=== PATIENT | male | born 1950 | race Caucasian/White ===

== ENCOUNTER → 2017-11-12 | Outpatient (CLI) | payer OTHER ==
[~2017-11-12] MED LIST: AMOX500C3 PO; CIPR0.3S OP
[2017-11-12 09:22] LABS: BASO % 0.2 %; BASO ABS # 0.01 K/uL (0-0.2); EOS % 1.6 %; EOS ABS # 0.08 K/uL (0-0.5); HEMATOCRIT 43.6 % (42-52); HEMOGLOBIN 15.8 g/dL (14.0-18.0); LYMPH % 34.1 %; LYMPH ABS # 1.72 K/uL (1.2-3.4); MEAN CELL VOLUME 87.9 fL (80-100); MEAN CORPUSCULAR HEMOGLOBIN 31.9 pg (25-34); MEAN CORPUSCULAR HGB CONC 36.2 g/dl (32-36); MEAN PLATELET VOLUME 9.3 fL (7.4-10.4); MONO % 9.7 %; MONO ABS # 0.49 K/uL (0.11-0.59); NEUT % 54.4 %; NEUT ABS # 2.74 K/uL (1.4-6.5); PLATELET COUNT 204 K/uL (130-400); RED CELL DISTRIBUTION WIDTH CV 13.7 % (11.5-14.5); RED CELL DISTRIBUTION WIDTH SD 43.9 fL (36.4-46.3); WHITE BLOOD COUNT 5.04 K/uL (4.8-10.8)
[2017-11-12 09:31] LABS: ALBUMIN 3.9 gm/dl (3.4-5.0); ALT/SGPT 27 U/L (12-78); BLOOD UREA NITROGEN 12 mg/dl (7-18); CALCIUM 8.8 mg/dl (8.5-10.1); CARBON DIOXIDE 25 mmol/L (21-32); CHOLESTEROL 171 mg/dl (0-200); CREATININE 0.86 mg/dl (0.60-1.40); GLUCOSE 109 mg/dl (70-99); POTASSIUM 4.1 mmol/L (3.5-5.1); SODIUM 139 mmol/L (136-145)
[2017-11-12 09:36] LABS: ALKALINE PHOSPHATASE 69 U/L (45-117); AST/SGOT 18 U/L (15-37); LDL CHOLESTEROL CALCULATED 106 mg/dl; TOTAL PROTEIN 6.9 gm/dl (6.4-8.2)
[2017-11-12 09:38] LABS: HEMOGLOBIN A1C 5.5 % (4.5-5.6)
== END | disposition home or self-care (01) ==
LOC: C.LAB 07:35
PROVIDERS: ATTEND Family Medicine
DX: Z01.818 Encounter for other preprocedural examination (principal); Z13.9 Encounter for screening, unspecified; E66.9 Obesity, unspecified; N52.9 Male erectile dysfunction, unspecified; R73.9 Hyperglycemia, unspecified

== ENCOUNTER 2017-11-21 06:04 | Inpatient (IN) | payer OTHER ==
[2017-11-12 08:09] VITALS: BMI 32.0
--- NOTE | 2017-11-12 08:40 | PAT Medication Instructions ---
Service Date Nov 12, 2017. Current Home Medication List Amoxicillin (Amoxil), Unknown Dose PO TID Ciprofloxacin Hcl (Ophth) (Ciloxan Oph), Unknown Dose OP QID Medication Instructions For Your Scheduled Surgery -Continue as directed until completed: Amoxicillin (Amoxil), Unknown Dose PO TID Ciprofloxacin Hcl (Ophth) (Ciloxan Oph), Unknown Dose OP QID If you have any questions please call us at [phone] or [phone] or [phone]
--- NOTE | 2017-11-12 09:29 | DIAGNOSTIC IMAGING REPORT ---
CHEST 2 VIEWS ROUTINE HISTORY: Preop. COMPARISON: None. FINDINGS: The lungs are clear. Cardiac silhouette is normal in size. No pleural effusions. No pneumothorax. Small nodular densities at the lung bases are consistent with nipple shadows. IMPRESSION: No acute process. Electronically signed by: Martin Willard M.D. 11/12/2017 9:27 AM Dictated Date/Time: 11/12/2017 9:26 AM
[2017-11-12 09:30] LABS: PTT PATIENT 26.7 SECONDS (21.0-31.0)
--- NOTE | 2017-11-20 12:39 | History and Physical ---
History & Physical Date Nov 20, 2017. Chief Complaint Patient presents a 66-year-old white male with severe end-stage DJD left knee and presents for left total knee arthroplasties failed attempts at conservative management including physical therapy anti-inflammatories relative rest activity modification cortical steroid injections and Visco supplementation presents with x-ray findings of subchondral sclerosis marginal osteophytes cystic changes for total knee arthroplasty History of Present Illness The patient is a 66 year old male with complaints of ongoing left knee pain no response to conservative management failing all conservative measures presents for left total knee arthroplasty Past Medical/Surgical History Patient has history of sleep apnea denies history of hypertension lung or GI disease Additional History Hepatic Disease: No Endocrine Disorder: No Kidney Disease: No Hypertension: No Heart Disease: No Bleeding Tendencies: No Infectious Diseases: No Allergies Coded Allergies: Codeine (Verified Adverse Reaction, Unknown, UPSET STOMACH, 11/12/17) Home Medications Scheduled Amoxicillin (Amoxil), Unknown Dose PO TID Ciprofloxacin Hcl (Ophth) (Ciloxan Oph), Unknown Dose OP QID Physical Examination Skin: warm/dry, no rash Eyes: normal inspection, EOMI, sclerae normal ENT: normal ENT inspection, pharynx normal Head: normocephalic, atraumatic Neck: supple, no adenopathy, trachea midline Respiratory/Chest: lungs clear, normal breath sounds, no respiratory distress Cardiovascular: regular rate, rhythm, no edema, no murmur Abdomen / GI: normal bowel sounds, non tender Back: normal inspection Extremities: normal inspection, normal range of motion, + pertinent finding ( Patient has a varus alignment with a femoral thrust femur subluxed medialward on tibia crepitation on clinical examination with a mild to moderate effusion medial lateral joint line pain and tenderness to exam consistent of end-stage varus alignment DJD) Neurologic/Psych: no motor/sensory deficits, alert, normal reflexes, oriented x 3 Diagnosis Severe end-stage tricompartmental degenerative joint disease left knee Plan of Treatment Left total knee arthroplasty postoperative pain meds DVT prophylaxis is necessary
[2017-11-21] VITALS (11 sets, daily range): BP systolic 143–177; BP diastolic 55–104; PULSE 75–91; TEMP 36.4–36.8; O2SAT 92–96; Ht 182.9 cm; Wt 109.3 kg
[~2017-11-21] VITALS: Ht 182.9 cm; Wt 109.3 kg
[~2017-11-21 06:04] MED LIST changes: +ACETAMINOPHEN 500 MG TAB PO SCH; +CEFAZOLIN 2000MG IV PUSH 15 ML IV SCH; +CeleBREX 200 MG CAP PO SCH; +DEXAMETHASONE 4 MG TAB PO SCH; +FAMOTIDINE 20 MG TAB PO SCH; +GABAPENTIN 300 MG CAP PO SCH; +LACTATED RINGER'S 1000ML 1,000 ML IV SCH; +METOCLOPRAMIDE HCL 10 MG TAB PO SCH; +ROPIVACAINE 5MG/ML 30 ML 150 MG, BUPIVACAINE 0.5% MPF INJ 30 ML, EpINEphrine HCL INJ 0.... INFIL SCH; +TRANEXAMIC ACID INJ 1,000 MG x 1 Bag Intra-Op IV SCH; +TRANEXAMIC ACID INJ 1,000 MG x 1 Bag Preop IV SCH
[2017-11-21] MEDS ORDERED: BUPIVACAINE 0.5 % 5 MG/1 ML PF 10ML VIAL ONE (06:32)
[2017-11-21] MEDS ORDERED: BUPIVACAINE 0.25% 30 ML VIAL ONE (06:32)
[2017-11-21] MEDS ORDERED: ATROPINE SULFATE 0.1 MG/ML 5ML SYR IV PRN (06:45)
[2017-11-21] MEDS ORDERED: EpHEDrine SULFATE INJ 50 MG/ML AMP IV PRN (06:45)
[2017-11-21] MEDS ORDERED: ONDANSETRON INJ 2 MG/ML 2 ML VIAL IV PRN ×2 (06:45→10:00)
[2017-11-21] MEDS ORDERED: POVIDONE-IODINE OP SOLN 30 ML BTL ONE (06:58)
[2017-11-21] MEDS ORDERED: BACITRACIN 50000 UNIT VIAL ONE (06:58)
[2017-11-21] MEDS ORDERED: ORTHO JOINT ANESTHETIC ONE (06:58)
--- NOTE | 2017-11-21 07:00 | History & Physical Bridge Note ---
H&P Re-Evaluation Bridge Note: I have examined the patient, reviewed the History & Physical and in the interval since the performance of the History & Physical I have noted the following changes of clinical significance: No changes noted
[2017-11-21] MEDS ORDERED: PROPOFOL IV EMULSION 10 MG/ML 20 ML VIAL IV ONE (07:06)
[2017-11-21] MEDS ORDERED: FENTANYL CITRATE INJ 50 MCG/1 ML 2 ML VIAL ONE ×2 (07:06→08:26)
[2017-11-21] MEDS ORDERED: MIDAZOLAM HCL 1 MG/ML 2ML VIAL ONE (07:06)
[2017-11-21] MEDS ORDERED: LIDOCAINE HCL 2% 2 ML VIAL (20MG/ML) ONE (07:06)
[2017-11-21] MEDS ORDERED: DEXAMETHASONE SOD INJ 4 MG/ML VIAL ONE (07:06)
[2017-11-21] MEDS ORDERED: ONDANSETRON INJ 2 MG/ML 2 ML VIAL ONE (07:06)
[2017-11-21] MEDS ORDERED: HYDROmorphone INJ 2 MG/ML SYR/VIAL ONE (08:31)
--- NOTE | 2017-11-21 09:08 | [facility] Post Operative Brief Note ---
Immediate Operative Summary Operative Date Nov 21, 2017. Pre-Operative Diagnosis Severe End-stage Tricompartmental degenerative joint disease of the left knee Post-Operative Diagnosis Severe End-stage Tricompartmental degenerative joint disease of the left knee Procedure(s) Performed Left Total Knee Arthroplasty utilizing De Leon [employer] journey to non-block total knee arthroplasty size 7 femur 7 tibia 11 polyethylene [address] Ben Shaffer Valet Parking Attendant Surgeon(s) Sohail Abdullahi PA-c Estimated Blood Loss 5 cc Findings Consistent with Post-Op Diagnosis Specimens A: Bone and Tissue left knee Anesthesia Type MAC Spinal Regional Complication(s) none Disposition Disposition: Recovery Room / PACU
--- NOTE | 2017-11-21 09:10 | [facility] Operative Report ---
Operative Report Operative Date Nov 21, 2017. Pre-Operative Diagnosis Severe End-stage Tricompartmental degenerative joint disease of the left knee Post-Operative Diagnosis Severe End-stage Tricompartmental degenerative joint disease of the left knee Procedure(s) Performed Left Total Knee Arthroplasty utilizing [employer] journey to non-block total knee arthroplasty size 7 femur 7 tibia 11 polyethylene [address] Ben Shaffer Assistant Corporate Secretary Surgeon(s) Sohail Abdullahi PA-c Estimated Blood Loss 5 cc Findings Patient presents with severe end-stage tricompartmental degenerative joint disease with varus alignment bone the bone changes eburnated bone subchondral cysts marginal osteophytes sclerosis is failed attempts at conservative management and physical therapy anti-inflammatories relative rest activity modification corticosteroid injections viscous supplementation his clinical exam reveals there to be evidence of a mild to moderate effusion sooner ligamentous laxity joint line pain and tenderness consistent with osteoarthritis Specimens A: Bone and Tissue left knee Anesthesia Type MAC Spinal Regional Complication(s) none Disposition Recovery Room / PACU Indications Patient presents with severe end-stage tricompartmental degenerative joint disease involving his left knee is been no response to conservative therapy including physical therapy anti-inflammatories relative rest activity modification he has x-ray findings consistent that of osteoarthritis subchondral sclerosis marginal osteophyte sclerosis cystic formation femoral varus alignment with the femoral shaft is ligamentous pseudolaxity on clinical exam moderate effusion joint line pain and tenderness Description of Procedure After proper prepping and draping of the left lower extremity anterior midline incision was made over the region of the extensor extensor mechanism after meticulous hemostasis was obtained and maintained in subcutaneous tissues a medial parapatellar incision was made The patella was subluxed lateralward the medial lateral gutter were cleaned from any hypertrophic synovitis and scar tissue of the distal femoral block was placed and the distal femoral osteotomy cut was made subsequently the chamfers anterior and posterior osteotomy cuts were made utilizing the 4-in-1 block the tibia was subsequently subluxed anteriorward medial and ateral meniscal remnants were excised in their entirety remnants of the anterior and posterior cruciate ligaments were excised in their entirety excellent exposure of the proximal tibia was obtained the tibial osteotomy guide was placed on the proximal tibial osteotomy cut was made once again the knee was irrigated with copious amounts of sterile saline solution the patella was subsequently everted lateralward thickened scar tissue around the patella was removed the patella was subsequently cut utilizing a freehand technique and was drilled prepared for final preparation and placement of patella socially flexion-extension gaps were checked and the equal and symmetric trials were placed to the appropriate femoral and tibial trials with poly-spacer being placed for equal flexion and extension gaps and full range of motion including extension to 0 and flexion to 140 the trial components after having been taken to recovery range of motion was subsequently removed meticulous hemostasis was obtained and maintained subsequently a knee block injection of joint cocktail including ropivacaine 0.5% 150 mg. Bupivacaine 0.5 % epinephrine 1-200,030 mL's toradol 30 mg dexamethasone 4 mg ketamine 10 mg clonidine 100 micrograms normal saline solution 30 mg was infiltrated into the soft tissues of the posterior knee medial lateral gutters and periosteal synovium special attention was paid to protect neurovascular structures at all times subsequently trial components having been removed the knee was irrigated with sterile saline solution. debris was removed the proximal tibia was subsequently prepared and was made ready for the placement of the tibial component tibial component was also cemented and tamped into position the femoral component was subsequently placed and cemented in the position the patellar component was subsequently cemented in position because hemostasis once again obtained and maintained wound having been thoroughly irrigated with debridement and debridement lavage was performed as well as a medial parapatellar incision closed with #1 Vicryl in interrupted fashion subcutaneous was closed with #2 Vicryl skin was closed with skin clips. PA-C was necessary for prepping and drapping as well as wound closure of deep fascia Sub cutaneous tissue and skin and was necessary for the case. A sterile compressive dressing was placed patient was taken to recovery in stable condition of report dictated by Edmund I attest to the content of the Intraoperative Record and any orders documented therein. Any exceptions are noted below. I attest to the content of the Intraoperative Record and any orders documented therein. Any exceptions are noted below.
[2017-11-21] MEDS ORDERED: OXYCODONE HCL IR 5 MG TAB (IMMEDIATE RELEASE) PO PRN (10:00)
[2017-11-21] MEDS ORDERED: BISACODYL 10 MG SUPP PR PRN (10:00)
[2017-11-21] MEDS ORDERED: MoRPHine SULFATE 4 MG/ML 1 ML CARP\\VIAL IV PRN (10:00)
[2017-11-21] MEDS ORDERED: CEFAZOLIN IV 2,000 MG in DEXTROSE 5% 50ML 50 ML IV SCH (10:00)
[2017-11-21] MEDS ORDERED: ALUMINUM/MAGNESIUM/SIMETH (MAALOX MAX) 30 ML UDC PO PRN (10:00)
[2017-11-21] MEDS ORDERED: MAGNESIUM HYDROXIDE SUSP 30 ML UDC PO PRN (10:00)
--- NOTE | 2017-11-21 10:32 | DIAGNOSTIC IMAGING REPORT ---
L KNEE 1 OR 2 VIEWS ROUTINE CLINICAL HISTORY: AP/LATERAL IN PACU LEFT KNEE knee arthroplasty COMPARISON: None. DISCUSSION: Evidence for total left knee arthroplasty. Good contact between prosthetic and underlying bone. Surgical drains are in position. Expected soft tissue postoperative change IMPRESSION: Anatomic alignment status post total left knee arthroplasty. The above report was generated using voice recognition software. It may contain grammatical, syntax or spelling errors. Electronically signed by: Luke Kohli M.D. 11/21/2017 10:31 AM Dictated Date/Time: 11/21/2017 10:28 AM
[2017-11-21] MEDS: FENTANYL CITRATE INJ 50 MCG/1 ML 2 ML VIAL IV PRN ×2 (10:33→10:38)
--- NOTE | 2017-11-21 11:03 | Anesthesiology Progress Note ---
Anesthesia Post Op Note Date & Time Nov 21, 2017 at 11:03 Vital Signs Pain Intensity: 3 Vital Signs Past 12 Hours Date Time Temp Pulse Resp B/P (MAP) Pulse Ox O2 Delivery O2 Flow Rate FiO2 11/21/17 10:55 36.5 87 16 162/88 97 Nasal Cannula 3 11/21/17 10:45 36.5 78 16 153/88 98 Nasal Cannula 3 11/21/17 10:35 83 16 150/86 96 Nasal Cannula 3 11/21/17 10:25 92 16 158/92 94 Nasal Cannula 3 11/21/17 10:15 93 16 168/93 95 Oxymask 10 11/21/17 10:05 94 16 162/94 94 Oxymask 10 11/21/17 09:58 36.3 100 16 168/92 98 Oxymask 10 11/21/17 06:50 36.8 76 16 171/104 96 Room Air Notes Mental Status: alert / awake / arousable, participated in evaluation Pt Amnestic to Procedure: Yes Nausea / Vomiting: adequately controlled Pain: adequately controlled Airway Patency, RR, SpO2: stable & adequate BP & HR: stable & adequate Hydration State: stable & adequate Anesthetic Complications: no major complications apparent
[2017-11-21] MEDS: FERROUS GLUCONATE 324 MG TAB PO SCH ×2 (12:30→17:45)
[2017-11-21] MEDS: D5W AND 1/2NSS + 20MEQ KCL 1,000 ML IV SCH ×2 (12:44→22:24)
[2017-11-21] MEDS: ACETAMINOPHEN 500 MG TAB PO SCH ×2 (14:06→21:36)
[2017-11-21] MEDS: CEFAZOLIN IV 2,000 MG in SYRINGE 0 ML IV SCH ×2 (15:47→23:28)
[2017-11-21] MEDS: CeleBREX 200 MG CAP PO SCH (21:35)
[2017-11-21] MEDS: DOCUSATE SODIUM 100 MG CAP PO SCH (21:35)
[2017-11-21] MEDS: SENNA 8.6 MG TAB PO SCH (21:35)
[2017-11-21] MEDS: ASPIRIN 81 MG ECTAB PO SCH (21:35)
[2017-11-21 22:21] LABS: ALBUMIN 3.3 gm/dl (3.4-5.0); CALCIUM 8.2 mg/dl (8.5-10.1); CREATININE 1.18 mg/dl (0.60-1.40); POTASSIUM 4.2 mmol/L (3.5-5.1)
[2017-11-21 22:26] LABS: TOTAL PROTEIN 6.3 gm/dl (6.4-8.2)
[2017-11-21 22:35] LABS: BASO % 0.1 %; BASO ABS # 0.01 K/uL (0-0.2); HEMATOCRIT 38.5 % (42-52); HEMOGLOBIN 13.8 g/dL (14.0-18.0); IG# 0.02 K/uL (0.00-0.02); LYMPH % 5.9 %; LYMPH ABS # 0.68 K/uL (1.2-3.4); MEAN CELL VOLUME 88.3 fL (80-100); MEAN CORPUSCULAR HEMOGLOBIN 31.7 pg (25-34); MEAN CORPUSCULAR HGB CONC 35.8 g/dl (32-36); MONO % 5.7 %; MONO ABS # 0.66 K/uL (0.11-0.59); NEUT % 88.1 %; NEUT ABS # 10.23 K/uL (1.4-6.5); PLATELET COUNT 225 K/uL (130-400); RED CELL DISTRIBUTION WIDTH CV 13.5 % (11.5-14.5); RED CELL DISTRIBUTION WIDTH SD 43.5 fL (36.4-46.3)
[2017-11-22 04:00] VITALS: BP 148/61; PULSE 71; TEMP 36.8; O2SAT 96
[2017-11-22] MEDS: ACETAMINOPHEN 500 MG TAB PO SCH ×3 (05:34→21:27)
[2017-11-22 06:56] VITALS: BP 148/78; PULSE 77; TEMP 36.8; O2SAT 97
[2017-11-22] MEDS: D5W AND 1/2NSS + 20MEQ KCL 1,000 ML IV SCH (07:35)
--- NOTE | 2017-11-22 08:05 | Orthopedic Progress Note ---
Orthopedic Progress Note Date of Service Nov 22, 2017. Subjective Post OP Day: 1 Reports: feeling well, pain controlled w PO medications, Denies: complaints, chest pain, SOB, light headedness, calf pain Additional Notes: nauseated yesterday, resolved so far this am Objective calves soft nontender, N/V intact, capillary refill less than 2 sec., dressing C /D/I, A&O x3, toes mobile, hemovac drainage (325cc/8 hours) Date Time Temp Pulse Resp B/P (MAP) Pulse Ox O2 Delivery O2 Flow Rate FiO2 11/22/17 06:56 36.8 77 18 148/78 (101) 97 Room Air 11/22/17 04:00 36.8 71 18 148/61 (90) 96 Room Air 11/21/17 23:34 Room Air 11/21/17 23:10 36.7 85 18 149/77 (101) 94 Room Air 11/21/17 19:25 169/95 (119) 11/21/17 19:19 36.7 91 20 177/88 (117) 96 Room Air 11/21/17 15:40 96 Room Air 11/21/17 15:01 36.6 89 16 146/79 (101) 95 Nasal Cannula 3.0 11/21/17 14:25 36.5 88 18 148/83 (104) 96 Nasal Cannula 3.0 11/21/17 13:30 36.6 90 20 143/91 (108) 94 Nasal Cannula 3.0 11/21/17 12:26 36.4 87 17 151/90 (110) 94 Nasal Cannula 3.0 11/21/17 11:44 36.6 88 18 150/91 (110) 92 Nasal Cannula 3.0 11/21/17 11:15 Nasal Cannula 11/21/17 11:15 Nasal Cannula 3.0 11/21/17 11:15 36.6 75 14 149/55 (86) 96 Ambu-Bag 3.0 11/21/17 10:55 36.5 87 16 162/88 97 Nasal Cannula 3 11/21/17 10:45 36.5 78 16 153/88 98 Nasal Cannula 3 11/21/17 10:35 83 16 150/86 96 Nasal Cannula 3 11/21/17 10:25 92 16 158/92 94 Nasal Cannula 3 11/21/17 10:15 93 16 168/93 95 Oxymask 10 11/21/17 10:05 94 16 162/94 94 Oxymask 10 11/21/17 09:58 36.3 100 16 168/92 98 Oxymask 10 Laboratory Results 24 Hours: Test 11/21/17 21:42 11/22/17 04:44 White Blood Count 11.60 K/uL Red Blood Count 4.36 M/uL Hemoglobin 13.8 g/dL Hematocrit 38.5 % Mean Corpuscular Volume 88.3 fL Mean Corpuscular Hemoglobin 31.7 pg Mean Corpuscular Hemoglobin Concent 35.8 g/dl Platelet Count 225 K/uL Mean Platelet Volume 10.0 fL Neutrophils (%) (Auto) 88.1 % Lymphocytes (%) (Auto) 5.9 % Monocytes (%) (Auto) 5.7 % Eosinophils (%) (Auto) 0.0 % Basophils (%) (Auto) 0.1 % Neutrophils # (Auto) 10.23 K/uL Lymphocytes # (Auto) 0.68 K/uL Monocytes # (Auto) 0.66 K/uL Eosinophils # (Auto) 0.00 K/uL Basophils # (Auto) 0.01 K/uL Assessment & Plan Assessment: POD #1 s/p Left TKA pt/ot dvt proph with kristopher/scd/asa plan for d/c home with [facility] when stable recheck drain output after PT Discharge Planning Discharge Planning: home with home health DVT Prophylaxis: TEDs, SCDs, ASA Therapy: Physical Therapy
--- NOTE | 2017-11-22 08:06 | Discharge Instructions ---
Discharge Instructions Date of Service Nov 22, 2017. Admission Reason for Admission: Left Knee Osteoarthritis Discharge Discharge Diagnosis / Problem: left total knee replacement Discharge Goals Goal(s): Decrease discomfort, Improve function, Increase independence Activity Recommendations Activity Limitations: as noted below Weightbearing Status: Left weightbearing (as tolerated) . Instructions / Follow-Up Instructions / Follow-Up ACTIVITY RECOMMENDATIONS: SELF CARE INSTRUCTIONS AFTER TOTAL KNEE REPLACEMENT A. You may need to continue a physical therapy program after discharge from the hospital. There are several options available to you. Your doctor will assist you in selecting the best one for you. 1. An out-patient facility 2 to 3 times a week for therapy or home therapy. 2. Continue working on all exercises taught to you in the hospital. Your goals should be to increase bending of your knee to 90 degrees and beyond and to fully straighten your knee. B. You may progress at your own pace from walking with a walker or crutches to a cane; then to no assistive devices. C. Make walking a part of your daily routine. Be up as much as comfortable with rest periods throughout the day. Rest with leg elevation is very important. Use the ice wrap frequently for the first 3-4 weeks. D. There are no restrictions on activities. You may ride in a car, shop, participate in online marketing analyst and all social activities. E. Wear the long elastic stockings (JAZMÍN hose) 20 hours a day for 2 weeks after surgery. They can be removed several times a day for laundering and for a bath. F. You may shower, no tub baths until cleared by your doctor. SPECIAL CARE INSTRUCTIONS: VERY IMPORTANT TO READ AND REVIEW A. There are a few signs you need to watch for after you are home. Call [facility] if you notice any of the followin. Increased severe knee pain. Some pain is expected especially when you exercise. 2. Increased swelling in your leg or knee; pain or swelling of the calf muscle in either lower leg. 3. Any fluid drainage from the incision. 4. Shortness of breath or chest pain. B. Please call [facility] at if you have any concerns or questions about your operation or recovery. The doctor or his nurse will return your call promptly. C. You must take antibiotics before dental work, bladder, bowel or other surgery. Your doctor will provide you with a permanent care to carry describing this precaution. IMPORTANT: * REMEMBER TO TAKE ASPIRIN, 81 MG, TWICE DAILY FOR 4 WEEKS UNLESS OTHERWISE DIRECTED. THIS IS YOUR BLOOD THINNER. * HIGH RISK PATIENTS MAY BE PRESCRIBED A STRONGER BLOOD THINNER. THIS WILL BE PROVIDED AT DISCHARGE. * CALL IF INCREASED PAIN, REDNESS, DRAINAGE OR FEVER GREATER THAT 101. * WEAR JAZMÍN HOSE 20 HOURS PER DAY FOR 2 WEEKS. * DERMABOND Prineo- This is a mesh tape dressing that is covered with glue. It should remain in place until the incision is properly healed, usually 10-14 days. This dressing is designed to naturally slough off. You may trim the excess mesh tape as it peels off. Incision may be briefly wet in a shower. Dry immediately by blotting with a clean, dry towel. Do not bath or swim until instructed by your doctor. Do not scratch, rub, or pick at the dressing. Do not apply any topical ointments or lotions until dressing is completely removed and/or instructed by your doctor. There may be a small piece of suture material at one end of your incision. Do not pull or trim this. If it is bothersome or catching on clothing, you may cover it with a band-aid. FOLLOW UP VISIT: If appointment is not already scheduled: Please call [facility] to make a follow-up appointment for 2 weeks after your surgery at . Current Hospital Diet Patient's current hospital diet: Regular Diet Discharge Diet Recommended Diet: Regular Diet Procedures Procedures Performed: Left Total Knee Arthroplasty utilizing [employer] journey to non-block total knee arthroplasty size 7 femur 7 tibia 11 polyethylene 35 oval patella Pending Studies Studies pending at discharge: no Laboratory Results Hemoglobin A1c Test 11/12/17 08:53 Range/Units Estimated Average Glucose 111 mg/dl Hemoglobin A1c 5.5 4.5-5.6 % Lipid Panel Test 11/12/17 08:53 Range/Units Triglycerides Level 128 0-150 mg/dl Cholesterol Level 171 0-200 mg/dl HDL Cholesterol 39 mg/dl Cholesterol/HDL Ratio 4.4 LDL Cholesterol, Calculated 106 mg/dl Medical Emergencies . Who to Call and When: Medical Emergencies: If at any time you feel your situation is an emergency, please call 911 immediately. . Non-Emergent Contact Non-Emergency issues call your: Primary Care Provider, Surgeon . "Provider Documentation" section prepared by Luke Rawls. . [place] Drug Monitoring Program Search Results: patient reviewed within database, no issues identified
[2017-11-22] MEDS ORDERED: RXC5 PO (08:08)
[2017-11-22] MEDS ORDERED: ACET-24 PO (08:08)
[2017-11-22] MEDS ORDERED: ONDA-170 PO (08:08)
[2017-11-22] MEDS ORDERED: ASPI-320 PO (08:08)
[2017-11-22] MEDS ORDERED: CLB200 PO (08:08)
[2017-11-22] MEDS ORDERED: CLC100 PO (08:08)
[2017-11-22] MEDS: FERROUS GLUCONATE 324 MG TAB PO SCH ×3 (08:17→18:06)
[2017-11-22] MEDS: TRAMADOL HCL 50 MG TAB PO PRN ×3 (08:20→18:06)
[2017-11-22] MEDS: MULTIVITAMIN TAB PO SCH (08:31)
[2017-11-22] MEDS: ASPIRIN 81 MG ECTAB PO SCH ×2 (08:31→21:26)
[2017-11-22] MEDS: DOCUSATE SODIUM 100 MG CAP PO SCH ×2 (08:31→21:26)
[2017-11-22] MEDS: CeleBREX 200 MG CAP PO SCH ×2 (08:32→21:26)
[2017-11-22 08:34] LABS: HEMATOCRIT 35.8 % (42-52); HEMOGLOBIN 12.7 g/dL (14.0-18.0); MEAN CELL VOLUME 88.6 fL (80-100); MEAN CORPUSCULAR HEMOGLOBIN 31.4 pg (25-34); MEAN CORPUSCULAR HGB CONC 35.5 g/dl (32-36); MEAN PLATELET VOLUME 9.6 fL (7.4-10.4); PLATELET COUNT 189 K/uL (130-400); RED CELL DISTRIBUTION WIDTH CV 13.8 % (11.5-14.5); RED CELL DISTRIBUTION WIDTH SD 44.7 fL (36.4-46.3); WHITE BLOOD COUNT 10.35 K/uL (4.8-10.8)
[2017-11-22 09:20] LABS: CALCIUM 8.1 mg/dl (8.5-10.1); CREATININE 0.87 mg/dl (0.60-1.40)
--- NOTE | 2017-11-22 09:31 | Medical Consult ---
Consultation Date of Consultation: Nov 22, 2017. Attending Physician: Ben Shaffer D.O. Reason for Consultation: Medical management History of Present Illness This is a 66 yo M with PMHx of HTN, obesity and possible HLD (labs recently checked by PCP) who presented for elective Left TKA performed by Dr. Shaffer on . The patient was seen and examined this morning. Pt reports doing well overall. He was up working with PT/OT this morning and completed a full lap around the [place]. Pt states his knee is slightly stiff but actually feels better when he is moving it. He denies any paresthesias or numbness. Tolerating diet without difficulty, +flatus, no BM yet. Pt is anticipating dc tomorrow, and has home health services being set up for home. Past Medical/Surgical History HTN Obesity Family History Diabetes mellitus BROTHER FH: emphysema FATHER Social History No exercise Drinks 2 cups coffee in morning and 1 diet soda per day Smoking Status: Never Smoker Smokeless Tobacco Use: No Alcohol Use: 2-3x per week, 2drinks at a time. Drug Use: none Marital Status: Housing Status: lives with family Occupation Status: employed Allergies Coded Allergies: Iodine (Verified Adverse Reaction, Mild, Rash, 11/21/17) Codeine (Verified Adverse Reaction, Unknown, UPSET STOMACH, 11/21/17) Current Inpatient Medications Current Inpatient Medications Medications (Trade) Dose Ordered Sig/Lilly Route Start Time Stop Time Status Last Admin Dose Admin Morphine Sulfate (MoRPHine SULFATE INJ) 4 mg Q4HWA PRN IV 11/21/17 10:00 12/05/17 09:59 Potassium Chloride/Dextrose/ Sod Cl 1,000 ml @ 100 mls/hr Q10H IV 11/21/17 13:00 11/22/17 12:59 11/22/17 07:35 100 MLS/HR Celecoxib (CeleBREX CAP) 200 mg BID PO 11/21/17 21:00 12/21/17 20:59 11/22/17 08:32 200 MG Oxycodone HCl (Roxicodone Immediate Rel Tab) 1 TABLET FOR PAIN RATING... Q4H PRN PO 11/21/17 10:00 12/05/17 09:59 Acetaminophen (Tylenol Tab) 1,000 mg Q8 PO 11/21/17 14:00 12/21/17 13:59 11/22/17 05:34 1,000 MG Magnesium Hydroxide (Milk Of Magnesia Susp) 30 ml Q6H PRN PO 11/21/17 10:00 12/21/17 09:59 Bisacodyl (Dulcolax Supp) 10 mg DAILY PRN MS 11/21/17 10:00 12/21/17 09:59 Senna (Senokot Tab) 17.2 mg HS PO 11/21/17 21:00 12/21/17 20:59 11/21/17 21:35 17.2 MG Docusate Sodium (coLACE CAP) 100 mg BID PO 11/21/17 21:00 12/21/17 20:59 11/22/17 08:31 100 MG Al Hydrox/Mg Hydrox/Simethicone (Maalox Max Susp) 15 ml Q4H PRN PO 11/21/17 10:00 12/21/17 09:59 Multivitamins (Multivitamin Tab) 1 tab QAM PO 11/22/17 09:00 12/22/17 08:59 11/22/17 08:31 1 TAB Ondansetron HCl (Zofran Inj) 4 mg Q6H PRN IV 11/21/17 10:00 12/21/17 09:59 11/21/17 12:50 4 MG Ferrous Gluconate (Ferrous Gluconate Tab) 324 mg TIDM PO 11/21/17 12:30 12/21/17 12:29 11/22/17 08:17 324 MG Tramadol HCl (Ultram Tab) 1 tablet for pain rating... Q4H PRN PO 11/21/17 10:00 12/21/17 09:59 11/22/17 08:20 50 MG Aspirin (Ecotrin Tab) 81 mg BID PO 11/21/17 21:00 12/21/17 20:59 11/22/17 08:31 81 MG Review of Systems Constitutional: No fever, No chills, No sweats Eyes: No diplopia ENT: No sore throat, No trouble swallowing Respiratory: No shortness of breath, No dyspnea on exertion Cardiovascular: No chest pain, No edema Abdomen: No pain, No nausea, No vomiting, No diarrhea, No constipation Musculoskeletal: + joint pain (mild Left knee), No swelling Genitourinary - Male: No dysuria Neurologic: No numbness/tingling, No balance problems Psychiatric: No depression symptoms, No anxiety Endocrine: No fatigue Integumentary: No rash, No itch Physical Exam Date Time Temp Pulse Resp B/P (MAP) Pulse Ox O2 Delivery O2 Flow Rate FiO2 11/22/17 06:56 36.8 77 18 148/78 (101) 97 Room Air 11/22/17 04:00 36.8 71 18 148/61 (90) 96 Room Air 11/21/17 23:34 Room Air 11/21/17 23:10 36.7 85 18 149/77 (101) 94 Room Air 11/21/17 19:25 169/95 (119) 11/21/17 19:19 36.7 91 20 177/88 (117) 96 Room Air 11/21/17 15:40 96 Room Air 11/21/17 15:01 36.6 89 16 146/79 (101) 95 Nasal Cannula 3.0 11/21/17 14:25 36.5 88 18 148/83 (104) 96 Nasal Cannula 3.0 11/21/17 13:30 36.6 90 20 143/91 (108) 94 Nasal Cannula 3.0 11/21/17 12:26 36.4 87 17 151/90 (110) 94 Nasal Cannula 3.0 11/21/17 11:44 36.6 88 18 150/91 (110) 92 Nasal Cannula 3.0 11/21/17 11:15 Nasal Cannula 11/21/17 11:15 Nasal Cannula 3.0 11/21/17 11:15 36.6 75 14 149/55 (86) 96 Ambu-Bag 3.0 11/21/17 10:55 36.5 87 16 162/88 97 Nasal Cannula 3 11/21/17 10:45 36.5 78 16 153/88 98 Nasal Cannula 3 11/21/17 10:35 83 16 150/86 96 Nasal Cannula 3 11/21/17 10:25 92 16 158/92 94 Nasal Cannula 3 11/21/17 10:15 93 16 168/93 95 Oxymask 10 11/21/17 10:05 94 16 162/94 94 Oxymask 10 11/21/17 09:58 36.3 100 16 168/92 98 Oxymask 10 General Appearance: WD/WN, no apparent distress Head: normocephalic, atraumatic Eyes: PERRL, EOMI ENT: hearing grossly normal, pharynx normal Neck: no adenopathy, no JVD Respiratory/Chest: lungs clear, no respiratory distress, no accessory muscle use Cardiovascular: regular rate, rhythm, no murmur, normal peripheral pulses Abdomen/GI: normal bowel sounds, non tender, soft Back: normal inspection Extremities/Musculoskelatal: no calf tenderness, no pedal edema, + pertinent finding (L knee wrapped in VANESSA, ice pack in place) Neurologic/Psych: alert, normal mood/affect, oriented x 3 Skin: normal color, warm/dry Laboratory Results Last 24 Hours Test 11/21/17 21:42 11/22/17 08:13 White Blood Count 11.60 K/uL 10.35 K/uL Red Blood Count 4.36 M/uL 4.04 M/uL Hemoglobin 13.8 g/dL 12.7 g/dL Hematocrit 38.5 % 35.8 % Mean Corpuscular Volume 88.3 fL 88.6 fL Mean Corpuscular Hemoglobin 31.7 pg 31.4 pg Mean Corpuscular Hemoglobin Concent 35.8 g/dl 35.5 g/dl Platelet Count 225 K/uL 189 K/uL Mean Platelet Volume 10.0 fL 9.6 fL Neutrophils (%) (Auto) 88.1 % Lymphocytes (%) (Auto) 5.9 % Monocytes (%) (Auto) 5.7 % Eosinophils (%) (Auto) 0.0 % Basophils (%) (Auto) 0.1 % Neutrophils # (Auto) 10.23 K/uL Lymphocytes # (Auto) 0.68 K/uL Monocytes # (Auto) 0.66 K/uL Eosinophils # (Auto) 0.00 K/uL Basophils # (Auto) 0.01 K/uL RDW Standard Deviation 43.5 fL 44.7 fL RDW Coefficient of Variation 13.5 % 13.8 % Immature Granulocyte % (Auto) 0.2 % Immature Granulocyte # (Auto) 0.02 K/uL Sodium Level 139 mmol/L 142 mmol/L Potassium Level 4.2 mmol/L 4.0 mmol/L Chloride Level 110 mmol/L 112 mmol/L Carbon Dioxide Level 23 mmol/L 24 mmol/L Anion Gap 6.0 mmol/L 6.0 mmol/L Blood Urea Nitrogen 13 mg/dl 12 mg/dl Creatinine 1.18 mg/dl 0.87 mg/dl Est Creatinine Clear Calc Drug Dose 79.7 ml/min 108.1 ml/min Estimated GFR () 74.6 105.0 Estimated GFR (Non- 64.4 90.6 BUN/Creatinine Ratio 10.7 14.2 Random Glucose 135 mg/dl 103 mg/dl Calcium Level 8.2 mg/dl 8.1 mg/dl Magnesium Level 2.0 mg/dl Total Bilirubin 0.3 mg/dl Aspartate Amino Transf (AST/SGOT) 17 U/L Alanine Aminotransferase (ALT/SGPT) 26 U/L Alkaline Phosphatase 60 U/L Total Protein 6.3 gm/dl Albumin 3.3 gm/dl Globulin 3.0 gm/dl Albumin/Globulin Ratio 1.1 Thyroid Stimulating Hormone (TSH) 0.710 uIu/ml Assessment & Plan 66 yo M with S/p L TKA - pain management, bowel regimen and dvt ppx with ASA 81 mg BID per primary team - PT/OT: plan for home health services at time of dc with [facility] as outpt - cbc stable - VSS - hemovac in place, draining Elevated BP - Will need follow up as outpt with PCP to determine if has dx of essential HTN. Pt reports is being followed by his [facility] PCP, Mary Alvarado. - Currently not on any medications, can use IV hydralazine prn while here if needed. DVT ppx: Teds, scds, asa 81 mg BID CODE STATUS: FULL CODE Disposition: From home, d/c per primary team PA Physician Supervision Note: I interviewed and examined the patient. Discussed with Dipika BAEZ and agree with findings and plan as documented in the note. Any exceptions or clarifications are listed here: None Vital signs remain stable, no fever Cardiac is regular, lungs clear Pt has is s/p TKA, has some post op hypertension, using iv hydralazine. will recommend outpt pcp follow up for HTN PT OT evaluations Documented By: Ben Szymanski Thank you for involving us in the care of Mr. Gallegos, at this time no further recommendations per Medicine. Will sign off.
[2017-11-22 15:09] VITALS: BP 164/87; PULSE 80; TEMP 37; O2SAT 93
[2017-11-22] MEDS: SENNA 8.6 MG TAB PO SCH (21:26)
[2017-11-22 23:08] VITALS: BP 151/79; PULSE 75; TEMP 37.2; O2SAT 93
[2017-11-23] MEDS: ACETAMINOPHEN 500 MG TAB PO SCH ×2 (05:42→13:53)
[2017-11-23] MEDS: FERROUS GLUCONATE 324 MG TAB PO SCH ×2 (07:15→11:44)
[2017-11-23] MEDS: ASPIRIN 81 MG ECTAB PO SCH (07:16)
[2017-11-23] MEDS: CeleBREX 200 MG CAP PO SCH (07:16)
[2017-11-23] MEDS: DOCUSATE SODIUM 100 MG CAP PO SCH (07:16)
[2017-11-23] MEDS: MULTIVITAMIN TAB PO SCH (07:16)
[2017-11-23 07:38] VITALS: BP 172/90; PULSE 78; TEMP 36.8; O2SAT 95
[2017-11-23 08:19] VITALS: O2SAT 95
--- NOTE | 2017-11-23 10:11 | Orthopedic Progress Note ---
Orthopedic Progress Note Date of Service Nov 23, 2017. Subjective Post OP Day: 2 Reports: feeling well Additional Notes: mild pain in the knee this AM. no other complaints. Systolic BP's running on the high side. Addressed by Med Service. Pt states that his PCP had been watching his BP's for awhile. Objective calves soft nontender, N/V intact, incision C/D/I, A&O x3, toes mobile Date Time Temp Pulse Resp B/P (MAP) Pulse Ox O2 Delivery O2 Flow Rate FiO2 11/23/17 08:19 95 Room Air 11/23/17 07:38 36.8 78 16 172/90 (117) 95 Room Air 11/23/17 00:00 Room Air 11/22/17 23:08 37.2 75 16 151/79 (103) 93 Room Air 11/22/17 15:41 Room Air 11/22/17 15:09 37.0 80 18 164/87 (112) 93 Room Air Assessment & Plan Assessment: POD #2 s/p Left TKA pt/ot dvt proph with k[facility]/scd/asa plan for d/c home with [facility] today. Follow up with PCP concerning BP's Inhouse Planning Pain Management: Celebrex, Ultram, Morphine, PO Tylenol, Oxy IR DVT Prophylaxis: TEDs, SCDs, ASA Discharge Planning Discharge Planning: home with home health DVT Prophylaxis: TEDs, ASA Therapy: Physical Therapy
[2017-11-23 10:36] VITALS: BP 172/90; PULSE 78; TEMP 36.8; O2SAT 95
== END 2017-11-23 14:29 | disposition home health service (06) | DRG 470 ==
LOC: C.ACU 06:04 → C.MSN 06:40 → ENRESERV 10:27
PROVIDERS: ADMIT Orthopaedic Surgery; ATTEND Orthopaedic Surgery
PROC: 0SRD0J9 Replacement of Left Knee Joint with Synthetic Substitute, Cemented, Open Approach (ICD-10-PCS; principal; 2017-11-21 08:15)
DX: M17.12 Unilateral primary osteoarthritis, left knee (principal); I10 Essential (primary) hypertension; E66.9 Obesity, unspecified; Z68.32 Body mass index [BMI] 32.0-32.9, adult; J01.90 Acute sinusitis, unspecified; R06.83 Snoring; F17.290 Nicotine dependence, other tobacco product, uncomplicated; Z88.5 Allergy status to narcotic agent; Z91.048 Other nonmedicinal substance allergy status; Z83.3 Family history of diabetes mellitus; Z82.5 Family history of asthma and other chronic lower respiratory diseases